=== PATIENT | female | born 1940 | race Caucasian/White ===

== ENCOUNTER 2020-05-05 11:24 | Inpatient (IN) | payer MEDICARE, SELFPAY ==
[2020-05-05] VITALS (54 sets, daily range): BP systolic 64–141; BP diastolic 36–102; PULSE 62–111; RESP 14–29; TEMP 35.9–36.6; O2SAT 87–100; BMI 25.4
--- NOTE | ~2020-05-05 | US_ITS ---
EXAMINATION:US venous doppler LE BI INDICATION:Pulmonary embolism TECHNIQUE: Multiple grayscale, color flow and Doppler images of the right and left lower extremity de ep venous systems were obtained and reviewed. COMPARISON:No prior studies for comparison. FINDINGS: The common femoral, superficial femoral and popliteal veins demonstrate normal respiratory variation, augmentation and compressibility. Color flow is also seen within the posterior tibial, pe roneal, greater saphenous and profunda veins. IMPRESSION: 1: No lower extremity deep venous thrombosis. Reviewed, dictated and finalized at location B. L CITY DRIVER
--- NOTE | ~2020-05-05 | CT_ITS ---
EXAMINATION: CTA chest PE protocol EXAM DATE: 05/05/2020 14:01 INDICATION: Shortness of breath, elevated d-dimer. TECHNIQUE: Spiral CTA of the chest (pulmonary arteries) was performed with 100 cc Omnipaque 350 intr avenous contrast injection. Images were acquired during the pulmonary arterial phase. Coronal maxi mum intensity projection 3D-reconstructions were created by the technologist on dedicated workstation . Axial, coronal and sagittal reformatted images were reviewed. The dose-length product (DLP) for t his examination was 208.31 mGy-cm. The exposure was tailored according to patient size (auto mA exp osure control), and iterative reconstruction (ASIR) was used as additional dose reduction technique. There is no prior study for comparison. FINDINGS: There is a subsegmental pulmonary embolism identified in the left lower lobe and another in the right middle lobe. Low clot burden. No thoracic aortic dissection. There is moderate centrilobu lar emphysema. Linear bibasilar and dependent atelectasis. No evidence of acute infectious process. Small pericardial effusion. Tracheobronchial tree is patent. There is no mediastinal, hilar or axillary lymphadenopathy. Ther e is no pneumothorax. Heart normal in size. There is mild coronary arterial calcification, arteri al sclerosis. 3 mm stone in the superior pole of the left kidney. Incompletely imaged fluid density lesion superior pole of right kidney. There is thoracic spondylosis without osteoblastic or osteolyt ic lesions identified. There is cervical fusion hardware. IMPRESSION: 1. Positive for bilateral subsegmental pulmonary emboli, low clot burden. 2. Scattered bilateral subsegmental atelectasis. 3. Moderate emphysema. 4. Left nephrolithiasis. Reviewed, dictated and finalized at location A. ONAL ECONOMIST
--- NOTE | ~2020-05-05 | US_ITS ---
US renal BI 05/06/2020 12:49 Procedure: Realtime transabdominal ultrasound of the kidneys and bladder. Indication: Elevated BUN/creatinine Comparison: No prior studies for comparison. Findings: Renal echotexture is normal bilaterally without hydronephrosis, contour deforming mass or r enal calculus. 2 cysts identified in the upper pole of the right kidney, largest measuring 3.6 cm max imum dimension. The right kidney measures 9 cm and left kidney measures 10.3 cm. Bladder within norm al limits. Impression: 1: Right renal cysts. Reviewed, dictated and finalized at location B. [employer] WORK[employer] MASTERS Impression: 1: Right renal cysts.
--- NOTE | ~2020-05-05 | XR_ITS ---
EXAMINATION: XR chest 1V portable EXAM DATE: 05/05/2020 12:59 INDICATION: Shortness of breath. TECHNIQUE: Portable AP frontal chest x-ray was obtained. Comparison is made to prior examination from 07/18. FINDINGS: The lungs are clear. There are no pleural effusions. The cardiomediastinal silhouette is within normal limits. There is no pneumothorax suspected. There are mild bony degenerative changes. There is cervical fusion hardware. IMPRESSION: No acute cardiopulmonary findings. Reviewed, dictated and finalized at location A. [employer]
--- NOTE | 2020-05-05 11:41 | ECG_ITS ---
Measurements Intervals [place] Rate: 102 P: 14 MN: 174 QRS: 68 QRSD: 94 T: 96 QT: 326 QTc: 425 Interpretive Statements SINUS TACHYCARDIA INCOMPLETE RIGHT BUNDLE BRANCH BLOCK BORDERLINE ST-T WAVE ABNORMALITY- ANTEROLAT/HIGH LAT LEADS BASELINE WANDER- I, II BORDERLINE ECG Electronically Signed On 05-05-2020 12:29:45 VERTICAL BORING MILL OPERATOR by Helder Dean D.O.
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
[2020-05-05 12:18] LABS: Basophils Absolute Auto 0.1 K/mm3 (0.0-0.1); Basophils Percent Auto 0.4 % (0.2-1.2); Eosinophils Absolute Auto 0.2 K/mm3 (0-0.3); Eosinophils Percent Auto 0.6 % (0-4.4); Hematocrit 29.1 % (37.0-47.0); Hemoglobin 9.4 g/dL (12.0-15.0); Immature Granulocyte Percent A 1.9 % (0-0.5); Lymphocytes Absolute Auto 1.07 K/mm3 (0.9-3.2); Mean Corpuscular HGB Conc 32.3 g/dl (32-36); Mean Corpuscular Volume 86.6 fl (80-100); Mean Platelet Volume 10.3 fl (7.4-10.4); Monocytes Absolute Auto 1.2 K/mm3 (0.1-0.6); Monocytes Percent Auto 4.6 % (2.6-8.5); Neutrophils Absolute Auto 23.7 K/mm3 (1.3-6.7); Neutrophils Percent Auto 88.5 % (45.5-73.1); Platelet Count Result 438 k/mm3 (150-375); Red Blood Count 3.36 M/mm3 (4.2-5.4); Red Cell Distribution Width 12.9 % (11.5-14.5); White Blood Count 26.8 K/mm3 (4.5-10.0)
[2020-05-05 12:27] LABS: Alanine Aminotransferase 13 U/L (4-35); Alkaline Phosphatase 154 U/L (38-126); Anion Gap 10 mmol/L (8-16); Aspartate Amino Transferase 32 U/L (14-36); Bilirubin,Total 0.7 mg/dL (0.2-1.3); Blood Urea Nitrogen 28 mg/dL (7-17); Calcium 8.7 mg/dL (8.4-10.2); Carbon Dioxide 23 mmol/L (22-30); Chloride 98 mmol/L (98-107); Estimated CRCL calculation 25 ml/min; Estimated Glomerular Filt Rate 31; Glucose 283 mg/dL (65-105); Potassium 4.3 mmol/L (3.4-5.0); Sodium 131 mmol/L (137-145)
[2020-05-05 12:40] LABS: NT Pro B Type Natriuretic Pept 821 PG/ML (5-100); Troponin I < 0.012 ng/mL (0.000-0.034)
[2020-05-05 12:43] LABS: D Dimer 9.06 ug/mL (<0.48)
[2020-05-05 14:53] LABS: Lactic Acid Reflex 1.7 mmol/L (0.7-2.1)
[2020-05-05] MEDS: DEXAMETHASONE SOD PHOS INJ 4 MG/ML VIAL 10 MG IV PUSH (14:54)
[2020-05-05] MEDS: LACTATED RINGERS 1,000 ML 999 ML IV CONT (14:55)
[2020-05-05 15:46] LABS: Basophils Absolute Auto 0.1 K/mm3 (0.0-0.1); Basophils Percent Auto 0.3 % (0.2-1.2); Eosinophils Absolute Auto 0.2 K/mm3 (0-0.3); Eosinophils Percent Auto 0.9 % (0-4.4); Hematocrit 27.6 % (37.0-47.0); Hemoglobin 8.9 g/dL (12.0-15.0); Immature Granulocyte Absolute 0.21 K/mm3 (0.00-0.031); Immature Granulocyte Percent A 0.8 % (0-0.5); Lymphocytes Absolute Auto 1.59 K/mm3 (0.9-3.2); Lymphocytes Percent Auto 6.2 % (18.3-44.2); Mean Corpuscular HGB Conc 32.2 g/dl (32-36); Mean Corpuscular Hemoglobin 27.8 pg (26-34); Mean Corpuscular Volume 86.3 fl (80-100); Monocytes Absolute Auto 1.1 K/mm3 (0.1-0.6); Monocytes Percent Auto 4.3 % (2.6-8.5); Neutrophils Absolute Auto 22.4 K/mm3 (1.3-6.7); Neutrophils Percent Auto 87.5 % (45.5-73.1); Platelet Count Result 431 k/mm3 (150-375); White Blood Count 25.6 K/mm3 (4.5-10.0)
[2020-05-05 15:55] LABS: INR 1.3
[2020-05-05 15:56] LABS: Partial Thromboplastin Time 31.1 SECONDS (22.3-36.8)
[2020-05-05] MEDS: HEPARIN SODIUM 5,000 UNITS/ML VIAL 4500 UNITS IV PUSH ×2 (16:03→23:22)
[2020-05-05] MEDS: HEPARIN SOD/D5W 100 UNITS/ML 25,000 UNITS/250 ML BAG 11 UNITS IV CONT (16:07)
--- NOTE | 2020-05-05 16:52 | PC.NURSE ---
will start o2 at 2 lpm nc for room air sat 90-93%. denies sob at this time
[2020-05-05 22:10] LABS: Glucose Point of Care 359 (65-105)
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
--- NOTE | 2020-05-05 22:45 | ADMGEN ---
This patient, Haven Tubbs, was admitted to IMU Room 214-01 at 2130. Patient/family oriented to hospital policies and general routines including ID bracelet, bed and alarms, visiting hours, pain management, procedures, bathroom and other care routines, personal items, smoking policy, room service/diet, and visiting hours. Information on how to activate the Rapid Response Team has been discussed. Patient/Family are encouraged to report perceived risks to care and to ask questions if they do not understand what they are told or what they should do.
[2020-05-05 22:56] LABS: Partial Thromboplastin Time 47.6 SECONDS (22.3-36.8)
[2020-05-05] MEDS: SODIUM CHLORIDE 0.9% IV 1,000 ML 100 ML IV CONT (23:22)
[2020-05-05 23:24] LABS: SARS-CoV-2 RNA PCR Negative
[2020-05-06] VITALS (8 sets, daily range): BP systolic 108–118; BP diastolic 45–94; PULSE 77–117; RESP 18–20; TEMP 35.6–36.6; O2SAT 95–100
--- NOTE | 2020-05-06 | ECHO_ITS ---
Patient Info Name: Haven Tubbs Age: 79 years : 1940 Gender: Female Ht: 64 in Wt: 149 lbs BSA: 1.76 m2 HR: 80 bpm BP: 117 / 48 mmHg Heart Rhythm: Sinus Rhythm Technical Quality: Good Exam Date: 05/06/2020 9:34 AM Exam Location: [facility] Pulmonary Patient Status: Inpatient Admit Date: 05/05/2020 Staff Ordering Physician: Inderjit Anders MD Physical Laboratory Assistant: Lucas Sexton RDCS Attending Provider: Lexus Colvin MD Referring Physician: Chago VILLANUEVA; Exam Type: CA echo doppler color flow Study Info Indications R06.02 - Shortness of breath Complete two-dimensional, color flow and Doppler transthoracic echocardiogram is performed. History/Risk Factors SOB w/ pulmonary embolism, CAD, HTN, anemia, DM2. Summary 1. Complete two-dimensional, color flow and Doppler transthoracic echocardiogram is performed. 2. Left ventricular chamber dimension is normal. 3. Left ventricular systolic function is normal, estimated at 60-65%. 4. There is moderately increased left ventricular wall thickness. 5. The left ventricular diastolic function is grade I diastolic dysfunction. 6. E/e' 9 is minimally elevated. 7. There is mild aortic valve stenosis based on a peak velocity of 184 cm/s, mean gradient of 6 mmHg, and aortic valve area of 1.8 cm2. 8. No pulmonary hypertension, estimated pulmonary arterial systolic pressure is 25 mmHg. Left Ventricle E/e' 9 is minimally elevated. Left ventricular chamber dimension is normal. Left ventricular systolic function is normal, estimated at 60-65%. There is moderately increased left ventricular wall thickness. The left ventricular diastolic function is grade I diastolic dysfunction. Right Ventricle Right ventricular chamber dimension is normal. Right ventricular systolic function is normal. Left Atria Left atrial chamber dimension is normal. Right Atria Right atrial chamber dimension is normal. Aortic Valve The aortic valve is not well visualized. There is mild aortic valve stenosis based on a peak velocity of 184 cm/s, mean gradient of 6 mmHg, and aortic valve area of 1.8 cm2. There is no aortic valve regurgitation. Cannot determine number of aortic valve leaflets. Pulmonic Valve There is no pulmonic regurgitation. Mitral Valve There is no mitral valve stenosis. There is no mitral valve regurgitation. Tricuspid Valve There is no tricuspid valve regurgitation. No pulmonary hypertension, estimated pulmonary arterial systolic pressure is 25 mmHg. Pericardium/Pleural There is no pericardial effusion. Inferior Vena Cava Normal inferior vena cava with >50% collapse upon inspiration consistent with normal right atrial pressure, 5 mmHg. Aorta The aortic root size at the sinus of Valsalva is normal. Left Ventricular Outflow Tract Name Value Normal LVOT 2D LVOT Diameter 1.8 cm LVOT Doppler LVOT Peak Gradient 6 mmHg LVOT Mean Gradient 3 mmHg LVOT VTI 25 cm LVOT VTI/AV VTI Ratio 0.7 LVOT Stroke Volume
[2020-05-06 05:40] LABS: Basophils Absolute Auto 0.1 K/mm3 (0.0-0.1); Basophils Percent Auto 0.2 % (0.2-1.2); Eosinophils Absolute Auto 1.2 K/mm3 (0-0.3); Eosinophils Percent Auto 4.4 % (0-4.4); Hematocrit 26.8 % (37.0-47.0); Hemoglobin 8.7 g/dL (12.0-15.0); Immature Granulocyte Absolute 0.59 K/mm3 (0.00-0.031); Immature Granulocyte Percent A 2.2 % (0-0.5); Lymphocytes Absolute Auto 0.76 K/mm3 (0.9-3.2); Lymphocytes Percent Auto 2.9 % (18.3-44.2); Mean Corpuscular HGB Conc 32.5 g/dl (32-36); Mean Corpuscular Volume 86.2 fl (80-100); Mean Platelet Volume 10.6 fl (7.4-10.4); Monocytes Absolute Auto 0.3 K/mm3 (0.1-0.6); Monocytes Percent Auto 1.2 % (2.6-8.5); Neutrophils Absolute Auto 23.6 K/mm3 (1.3-6.7); Neutrophils Percent Auto 89.1 % (45.5-73.1); Platelet Count Result 384 k/mm3 (150-375); Red Blood Count 3.11 M/mm3 (4.2-5.4); Red Cell Distribution Width 12.9 % (11.5-14.5); White Blood Count 26.5 K/mm3 (4.5-10.0)
[2020-05-06 06:11] LABS: Partial Thromboplastin Time 197.8 SECONDS (22.3-36.8)
[2020-05-06 08:06] LABS: Basophils Percent Auto 0.1 % (0.2-1.2); Eosinophils Absolute Auto 0.8 K/mm3 (0-0.3); Eosinophils Percent Auto 2.7 % (0-4.4); Hematocrit 27.6 % (37.0-47.0); Immature Granulocyte Absolute 0.48 K/mm3 (0.00-0.031); Immature Granulocyte Percent A 1.7 % (0-0.5); Lymphocytes Percent Auto 3.5 % (18.3-44.2); Mean Corpuscular HGB Conc 32.6 g/dl (32-36); Mean Corpuscular Hemoglobin 27.9 pg (26-34); Mean Corpuscular Volume 85.4 fl (80-100); Mean Platelet Volume 10.4 fl (7.4-10.4); Monocytes Absolute Auto 0.5 K/mm3 (0.1-0.6); Monocytes Percent Auto 1.8 % (2.6-8.5); Neutrophils Percent Auto 90.2 % (45.5-73.1); Platelet Count Result 422 k/mm3 (150-375); Red Blood Count 3.23 M/mm3 (4.2-5.4); Red Cell Distribution Width 12.9 % (11.5-14.5); White Blood Count 28.8 K/mm3 (4.5-10.0)
[2020-05-06 08:17] LABS: Anion Gap 7 mmol/L (8-16); Blood Urea Nitrogen 23 mg/dL (7-17); Calcium 8.7 mg/dL (8.4-10.2); Carbon Dioxide 24 mmol/L (22-30); Chloride 103 mmol/L (98-107); Estimated CRCL calculation 30 ml/min; Estimated Glomerular Filt Rate 44; Glucose 295 mg/dL (65-105); Potassium 4.3 mmol/L (3.4-5.0); Sodium 134 mmol/L (137-145)
[2020-05-06 08:20] LABS: Glucose Point of Care 312 (65-105)
[2020-05-06 08:20] LABS: Anisocytosis 1+ (NORMAL); Burr Cells 1+ (NORMAL); Hypochromasia 1+ (NORMAL); Microcytosis 1+ (NORMAL)
[2020-05-06 08:21] LABS: Platelet Estimate Adequate (Adequate)
[2020-05-06] MEDS: INSULIN ASPART (*BKC) 100 UNITS/ML SUB-Q ×2 (08:39→17:41)
[2020-05-06 13:03] LABS: Glucose Point of Care 182 (65-105)
[2020-05-06 13:18] LABS: Partial Thromboplastin Time 67.1 SECONDS (22.3-36.8)
[2020-05-06] MEDS: HEPARIN SODIUM 5,000 UNITS/ML VIAL 2500 UNITS IV PUSH (13:29)
[2020-05-06] MEDS: HEPARIN SOD/D5W 100 UNITS/ML 25,000 UNITS/250 ML BAG 11 UNITS IV CONT (13:30)
[2020-05-06 13:52] LABS: Add Urine Microscopic? YES; Appearance Urine Clear (Clear); Bilirubin Urine Negative (Negative); Blood Urine Negative (Negative); Color Urine Yellow (Yellow); Glucose Urine UA 3+ mg/dL (Negative); Ketones Urine Negative (Negative); Leukocyte Esterase Ur Negative LEU/UL (NEGATIVE); Mucus Urine Rare /lpf; Nitrate Urine Negative (Negative); Protein Urine Negative (Negative); RBC Urine 0-2 /hpf (0-2); Specific Grav Ur 1.026 (1.001-1.035); Squamous Epithelial Cell Urine Occasional /hpf (Few); Transitional Epi Cells Urine Rare /hpf (None Seen); Urobilinogen Urine Negative mg/dL (<2.0)
--- NOTE | 2020-05-06 14:55 | PM.IMPN ---
Progress Note: A&P Assessment and Plan (1) Pulmonary emboli: Qualifiers: Pulmonary embolism type: multiple subsegmental (without acute cor pulmonale) Qualified Code(s): I26.94 - Multiple subsegmental pulmonary emboli without acute cor pulmonale Code(s): I26.99 - Other pulmonary embolism without acute cor pulmonale Status: Acute Assessment and Plan: She has been anticoagulated on IV heparin by ER provider. She will need to be transitioned to oral anticoagulants am 12 venous doppler neg and no pul htn on echo (2) Leukocytosis: Qualifiers: Leukocytosis type: unspecified Qualified Code(s): D72.829 - Elevated white blood cell count, unspecified Code(s): D72.829 - Elevated white blood cell count, unspecified Status: Acute Assessment and Plan: May be secondary to acute pulmonary emboli, viral infection, or other undiagnosed infection(did receive dexamethasone in ER too). urinalysis looks benign. Blood cultures pending. Monitor for any signs or symptoms of acute bacterial infection. She was empirically treated with IV antibiotics in the ER . (3) Normocytic anemia: Code(s): D64.9 - Anemia, unspecified Status: Acute Assessment and Plan: acute vs. chronic anemia? She denies any acute blood loss. We will monitor blood counts. Check FOBT. Fe studies and b12 ordered (4) Acute renal failure: Qualifiers: Acute renal failure type: unspecified Qualified Code(s): N17.9 - Acute kidney failure, unspecified Code(s): N17.9 - Acute kidney failure, unspecified Status: Acute Assessment and Plan: withLight IV hydration overnight creatinine fell to 1.2. Renal US no obstruction (5) Suspected 2019 novel coronavirus infection: Code(s): Z20.828 - Contact with and (suspected) exposure to other viral communicable diseases Status: Acute Assessment and Plan: COVID-19 results negative (6) Nephrolithiasis: Code(s): N20.0 - Calculus of kidney Status: Chronic Assessment and Plan: She may need Urology referral for an outpatient appointment for her asymptomatic nephrolithiasis. (7) Type 2 diabetes mellitus without complications: Qualifiers: Diabetes mellitus detention insulin use: without detention use Qualified Code(s): E11.9 - Type 2 diabetes mellitus without complications Code(s): E11.9 - Type 2 diabetes mellitus without complications Status: Chronic Assessment and Plan: Accuchecks, SSI Coverage, hypoglycemic coverage, hold glimperide, check A1c. (8) Pure hypercholesterolemia: Code(s): E78.00 - Pure hypercholesterolemia, unspecified Status: Chronic Assessment and Plan: Continue statin thearpy. (9) Back pain, chronic: Qualifiers: Back pain location: back pain in unspecified location Back pain laterality: unspecified Qualified Code(s): M54.9 - Dorsalgia, unspecified; G89.29 - Other chronic pain Code(s): M54.9 - Dorsalgia, unspecified; G89.29 - Other chronic pain Status: Chronic Assessment and Plan: Continue pain control as needed. Subjective Date/time seen: 05/06/20 14:55 Interval history: Date of visit 05/06, 79-year-old type 2 diabetic chronic back pain admitted with shortness breath and found to pulmonary emboli on CT scan. COVID swab was negative and feels better this a.m. after IV heparin treatment Denies any chest pain or shortness of breath at rest with 2 L nasal cannula. Exam Narrative: Exam Narrative: Blood pressure 114/52 pulse is 76 respirations 16 per minute saturating 98% on 2 L nasal cannula afebrile Pupils equal reactive light sclera anicteric Lungs faint bibasilar posterior crackles CV regular rate rhythm no murmurs Abdomen is soft nontender no masses Extremities without edema good distal pulses 2+ symmetrical dorsalis pedis posterior tibial and no calf tenderness Neuro alert cooperative n
[2020-05-06 16:33] LABS: Glucose Point of Care 291 (65-105)
--- NOTE | 2020-05-06 16:55 | PC.NURSE ---
pt transferred in to room 242 via bed, oriented to new room and environment, reviewed plan of care
--- NOTE | 2020-05-06 17:01 | PC.NURSE ---
This patient, Haven Tubbs, was transferred to [facility] on 05/06/20 at 1645. Personal belongings sent with patient. Report given to Angelica LANDERS. Appropriate documentation sent with patient.
[2020-05-06] MEDS: FAMOTIDINE 20 MG TABLET PO (21:05)
[2020-05-06] MEDS: traMADol HCL (*CRX) 50 MG TABLET PO (21:09)
[2020-05-06] MEDS: ALPRAZolam (*CRX) 0.25 MG TABLET PO (21:09)
[2020-05-06 21:53] LABS: Glucose Point of Care 230 (65-105)
[2020-05-07] VITALS: BP 121/49; PULSE 78; RESP 20; TEMP 36.4; O2SAT 96
[2020-05-07 01:43] LABS: Partial Thromboplastin Time 79.7 SECONDS (22.3-36.8)
[2020-05-07 04:00] VITALS: BP 136/53; PULSE 84; RESP 20; TEMP 36.2; O2SAT 96
[2020-05-07 07:43] LABS: Basophils Absolute Auto 0.1 K/mm3 (0.0-0.1); Basophils Percent Auto 0.2 % (0.2-1.2); Eosinophils Absolute Auto 0.2 K/mm3 (0-0.3); Hematocrit 26.4 % (37.0-47.0); Hemoglobin 8.5 g/dL (12.0-15.0); Immature Granulocyte Percent A 0.9 % (0-0.5); Lymphocytes Absolute Auto 3.05 K/mm3 (0.9-3.2); Lymphocytes Percent Auto 14.4 % (18.3-44.2); Mean Corpuscular HGB Conc 32.2 g/dl (32-36); Mean Corpuscular Hemoglobin 27.4 pg (26-34); Mean Corpuscular Volume 85.2 fl (80-100); Mean Platelet Volume 10.6 fl (7.4-10.4); Monocytes Absolute Auto 0.7 K/mm3 (0.1-0.6); Monocytes Percent Auto 3.3 % (2.6-8.5); Neutrophils Absolute Auto 16.9 K/mm3 (1.3-6.7); Neutrophils Percent Auto 80.2 % (45.5-73.1); Platelet Count Result 438 k/mm3 (150-375); White Blood Count 21.1 K/mm3 (4.5-10.0)
[2020-05-07 07:57] LABS: Iron 83 ug/dL (37-170)
[2020-05-07 08:07] LABS: Percent Iron Saturation 37 % (20-50)
[2020-05-07 08:37] LABS: Glucose Point of Care 155 (65-105)
[2020-05-07 09:25] VITALS: O2SAT 96
[2020-05-07] MEDS: ATORVASTATIN 10 MG TABLET PO (09:31)
[2020-05-07] MEDS: VITAMIN B COMPLEX/VIT C CAPSULE 1 EACH PO (09:31)
[2020-05-07] MEDS: MULTIVITAMINS THERAPEUTIC TAB (*BKC) 1 TABLET PO (09:31)
[2020-05-07] MEDS: FAMOTIDINE 20 MG TABLET PO (09:31)
[2020-05-07] MEDS: lisinopriL 2.5 MG TABLET PO (09:31)
[2020-05-07 10:00] VITALS: BP 125/55; PULSE 79; RESP 16; TEMP 36.6; O2SAT 95
[2020-05-07 10:42] LABS: Anion Gap 5 mmol/L (8-16); Blood Urea Nitrogen 26 mg/dL (7-17); Calcium 8.6 mg/dL (8.4-10.2); Carbon Dioxide 28 mmol/L (22-30); Chloride 104 mmol/L (98-107); Estimated CRCL calculation 32 ml/min; Estimated Glomerular Filt Rate 48; Glucose 173 mg/dL (65-105); Potassium 4.2 mmol/L (3.4-5.0); Sodium 137 mmol/L (137-145)
[2020-05-07 10:45] VITALS: O2SAT 94
[2020-05-07] MEDS: RIVAROXABAN 15 MG TABLET PO (11:00)
[2020-05-07 13:09] LABS: Vitamin B12 > 1000.0 pg/mL (239-931)
--- NOTE | 2020-05-07 16:58 | PM.DS ---
DS: Admitting Diagnosis Admitting Diagnosis Admitting Diagnosis: Acute Bilateral PE DS: Discharge Diagnosis Discharge Diagnosis (1) Pulmonary emboli: Qualifiers: Pulmonary embolism type: multiple subsegmental (without acute cor pulmonale) Qualified Code(s): I26.94 - Multiple subsegmental pulmonary emboli without acute cor pulmonale Code(s): I26.99 - Other pulmonary embolism without acute cor pulmonale Status: Acute Assessment and Plan: She has been anticoagulated on IV heparin by ER provider. She was transitioned to oral anticoagulants , Xarelto 15 mg b.i.d. at time of discharge venous doppler neg and no pul htn on echo with normal ejection fraction Unprovoked PE though she has been sedentary with recent back pain. No significant weight loss or other suggestions of underlying malignancy and COVID swab was negative. (2) Leukocytosis: Qualifiers: Leukocytosis type: unspecified Qualified Code(s): D72.829 - Elevated white blood cell count, unspecified Code(s): D72.829 - Elevated white blood cell count, unspecified Status: Acute Assessment and Plan: May be secondary to acute pulmonary emboli, (did receive dexamethasone in ER too). urinalysis looks benign. Blood cultures no growth. No signs or symptoms of acute bacterial infection. WBC had fallen to 21 K and will have repeated again within 10 days as an outpatient. (3) Normocytic anemia: Code(s): D64.9 - Anemia, unspecified Status: Acute Assessment and Plan: acute vs. chronic anemia? She denies any acute blood loss. . Fe studies compatible with anemia chronic disease and increase ferritin. B12 level was high. CBC in 2015 with hemoglobin 9. Colonoscope approximately 1 year ago revealed only hemorrhoids and small polyps. She will follow-up with primary care for repeat CBC within 10 days (4) Acute renal failure: Qualifiers: Acute renal failure type: unspecified Qualified Code(s): N17.9 - Acute kidney failure, unspecified Code(s): N17.9 - Acute kidney failure, unspecified Status: Acute Assessment and Plan: withLight IV hydration creatinine fell to 1.1 at discharge. Renal US no obstruction (5) Suspected 2019 novel coronavirus infection: Code(s): Z20.828 - Contact with and (suspected) exposure to other viral communicable diseases Status: Acute Assessment and Plan: COVID-19 results negative (6) Nephrolithiasis: Code(s): N20.0 - Calculus of kidney Status: Chronic Assessment and Plan: She may need Urology referral for an outpatient appointment for her asymptomatic nephrolithiasis. (7) Type 2 diabetes mellitus without complications: Qualifiers: Diabetes mellitus usp insulin use: without moth exterminator use Qualified Code(s): E11.9 - Type 2 diabetes mellitus without complications Code(s): E11.9 - Type 2 diabetes mellitus without complications Status: Chronic Assessment and Plan: Accuchecks, SSI Coverage, hypoglycemic coverage, hold glimperide, A1c. 7.0 (8) Pure hypercholesterolemia: Code(s): E78.00 - Pure hypercholesterolemia, unspecified Status: Chronic Assessment and Plan: Continue statin thearpy. (9) Back pain, chronic: Qualifiers: Back pain laterality: unspecified Back pain location: back pain in unspecified location Qualified Code(s): M54.9 - Dorsalgia, unspecified; G89.29 - Other chronic pain Code(s): M54.9 - Dorsalgia, unspecified; G89.29 - Other chronic pain Status: Chronic Assessment and Plan: Continue pain control as needed. DS: Summary Hospital Course Hospital Course: 79-year-old hypertensive type 2 diabetic presented to the emergency room with increasing shortness of breath for fluid COVID. Found to have pulmonary emboli and COVID swab was negative. Treated with IV heparin transition to Xarelto before discharge and sh
== END 2020-05-07 13:15 | disposition home or self-care (01) | DRG 176 ==
LOC: ANHED 15:46 → ANHIMU 20:52 → ANH2MED 05-07 11:15 → ANHIMU 05-11 13:35
PROVIDERS: Family Medicine; Admitting Provider Family Medicine; Emergency Provider Emergency Medicine; PCP Internal Medicine; Visit Provider Internal Medicine
DX: I26.94 Multiple subsegmental thrombotic pulmonary emboli without acute cor pulmonale (principal); N17.9 Acute kidney failure, unspecified; Z20.828 Contact with and (suspected) exposure to other viral communicable diseases; D72.829 Elevated white blood cell count, unspecified; D63.8 Anemia in other chronic diseases classified elsewhere; N20.0 Calculus of kidney; E11.9 Type 2 diabetes mellitus without complications; E78.00 Pure hypercholesterolemia, unspecified; M54.9 Dorsalgia, unspecified; G89.29 Other chronic pain; D47.3 Essential (hemorrhagic) thrombocythemia; I25.10 Atherosclerotic heart disease of native coronary artery without angina pectoris; Z87.891 Personal history of nicotine dependence; Z95.5 Presence of coronary angioplasty implant and graft
CPT/HCPCS: 36415; 71045; 71275; 76775; 80048; 80053; 81001; 82607; 82728; 83036; 83540; 83550; 83605; 83880; 84484; 85025; 85380; 85610; 85730; 87040; 87086; 87635; 93005; 93306; 93970; 96361; 96365; 96366; 96367; 96368; 96375; 99291; A9270; C9803; G0378; J0456; J0696; J1100; J1644; J1815; J7030; J7120; Q9967; U0003

== ENCOUNTER 2020-05-08 08:33 | Observation (INO) | payer MEDICARE, SELFPAY ==
[2020-05-08] VITALS (11 sets, daily range): BP systolic 126–151; BP diastolic 53–68; PULSE 76–98; RESP 18–20; TEMP 36.2–36.8; O2SAT 96–100; BMI 26.0
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
[2020-05-08 09:00] LABS: Basophils Absolute Auto 0.1 K/mm3 (0.0-0.1); Basophils Percent Auto 0.5 % (0.2-1.2); Eosinophils Absolute Auto 0.6 K/mm3 (0-0.3); Eosinophils Percent Auto 3.6 % (0-4.4); Hematocrit 30.6 % (37.0-47.0); Immature Granulocyte Percent A 1.2 % (0-0.5); Lymphocytes Absolute Auto 2.69 K/mm3 (0.9-3.2); Lymphocytes Percent Auto 16.1 % (18.3-44.2); Mean Corpuscular HGB Conc 32.7 g/dl (32-36); Mean Corpuscular Hemoglobin 27.5 pg (26-34); Mean Corpuscular Volume 84.3 fl (80-100); Mean Platelet Volume 10.2 fl (7.4-10.4); Monocytes Percent Auto 5.7 % (2.6-8.5); Neutrophils Absolute Auto 12.2 K/mm3 (1.3-6.7); Neutrophils Percent Auto 72.9 % (45.5-73.1); Platelet Count Result 519 k/mm3 (150-375); Red Blood Count 3.63 M/mm3 (4.2-5.4); Red Cell Distribution Width 12.8 % (11.5-14.5); White Blood Count 16.8 K/mm3 (4.5-10.0)
[2020-05-08 09:10] LABS: INR 4.4; Prothrombin Time 42.2 Seconds (11.1-14.7)
[2020-05-08 09:11] LABS: Partial Thromboplastin Time 57.4 SECONDS (22.3-36.8)
[2020-05-08 09:13] LABS: Alanine Aminotransferase 22 U/L (4-35); Albumin Level 3.2 g/dL (3.5-5.1); Alkaline Phosphatase 181 U/L (38-126); Anion Gap 8 mmol/L (8-16); Aspartate Amino Transferase 31 U/L (14-36); Bilirubin,Total 0.5 mg/dL (0.2-1.3); Blood Urea Nitrogen 23 mg/dL (7-17); Carbon Dioxide 28 mmol/L (22-30); Chloride 101 mmol/L (98-107); Estimated CRCL calculation 27 ml/min; Estimated Glomerular Filt Rate 40; Glucose 192 mg/dL (65-105); Potassium 4.2 mmol/L (3.4-5.0); Sodium 137 mmol/L (137-145)
[2020-05-08] MEDS: SODIUM CHLORIDE 0.9% IV 1,000 ML 999 ML IV CONT (09:16)
[2020-05-08 11:45] LABS: Hematocrit 32.8 % (37.0-47.0); Hemoglobin 10.5 g/dL (12.0-15.0)
--- NOTE | 2020-05-08 14:58 | ADMGEN ---
This patient, Haven Tubbs, was admitted to 2 Medical Room 260-01. Patient/family oriented to hospital policies and general routines including ID bracelet, bed and alarms, visiting hours, pain management, procedures, bathroom and other care routines, personal items, smoking policy, room service/diet, and visiting hours. Information on how to activate the Rapid Response Team has been discussed. Patient/Family are encouraged to report perceived risks to care and to ask questions if they do not understand what they are told or what they should do. Report received from LEESA Mercado.
[2020-05-08 16:59] LABS: Glucose Point of Care 139 (65-105)
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
[2020-05-08] MEDS: ACETAMINOPHEN 325 MG TABLET 650 MG PO (23:19)
[2020-05-08] MEDS: ALPRAZolam (*CRX) 0.25 MG TABLET PO (23:19)
[2020-05-08 23:21] LABS: Hematocrit 28.1 % (37.0-47.0); Hemoglobin 9.2 g/dL (12.0-15.0)
[2020-05-09 01:39] LABS: Glucose Point of Care 202 (65-105)
[2020-05-09 02:00] VITALS: BP 137/52; PULSE 79; RESP 21; TEMP 36.4; O2SAT 100
[2020-05-09 05:43] LABS: Basophils Absolute Auto 0.1 K/mm3 (0.0-0.1); Basophils Percent Auto 0.5 % (0.2-1.2); Eosinophils Absolute Auto 0.5 K/mm3 (0-0.3); Eosinophils Percent Auto 4.1 % (0-4.4); Hemoglobin 9.4 g/dL (12.0-15.0); Immature Granulocyte Absolute 0.22 K/mm3 (0.00-0.031); Immature Granulocyte Percent A 1.7 % (0-0.5); Lymphocytes Absolute Auto 2.43 K/mm3 (0.9-3.2); Lymphocytes Percent Auto 18.8 % (18.3-44.2); Mean Corpuscular HGB Conc 32.4 g/dl (32-36); Mean Corpuscular Hemoglobin 27.3 pg (26-34); Mean Corpuscular Volume 84.3 fl (80-100); Mean Platelet Volume 10.1 fl (7.4-10.4); Monocytes Absolute Auto 0.8 K/mm3 (0.1-0.6); Monocytes Percent Auto 6.5 % (2.6-8.5); Neutrophils Absolute Auto 8.9 K/mm3 (1.3-6.7); Neutrophils Percent Auto 68.4 % (45.5-73.1); Platelet Count Result 429 k/mm3 (150-375); Red Blood Count 3.44 M/mm3 (4.2-5.4); Red Cell Distribution Width 12.7 % (11.5-14.5); White Blood Count 12.9 K/mm3 (4.5-10.0)
[2020-05-09 05:53] LABS: Potassium 3.8 mmol/L (3.4-5.0)
[2020-05-09 06:00] VITALS: BP 130/58; PULSE 88; RESP 18; TEMP 36.1; O2SAT 97
[2020-05-09 06:15] LABS: Anion Gap 9 mmol/L (8-16); Blood Urea Nitrogen 17 mg/dL (7-17); Calcium 8.7 mg/dL (8.4-10.2); Carbon Dioxide 25 mmol/L (22-30); Chloride 103 mmol/L (98-107); Estimated CRCL calculation 34 ml/min; Estimated Glomerular Filt Rate 54; Glucose 150 mg/dL (65-105); Magnesium 1.8 mg/dL (1.6-2.3); Sodium 137 mmol/L (137-145)
[2020-05-09] MEDS: ACETAMINOPHEN 325 MG TABLET 650 MG PO ×2 (06:56→13:37)
[2020-05-09 08:00] VITALS: BP 109/57; PULSE 93; RESP 18; TEMP 36.3; O2SAT 97
[2020-05-09 08:23] LABS: Glucose Point of Care 185 (65-105)
[2020-05-09] MEDS: VITAMIN B COMPLEX/VIT C CAPSULE 1 EACH PO (10:14)
[2020-05-09] MEDS: ATORVASTATIN 10 MG TABLET PO (10:14)
[2020-05-09] MEDS: MULTIVITAMINS THERAPEUTIC TAB (*BKC) 1 TABLET PO (10:14)
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
[2020-05-09 10:45] LABS: Hematocrit 32.3 % (37.0-47.0); Hemoglobin 10.5 g/dL (12.0-15.0)
--- NOTE | 2020-05-09 10:54 | PM.IMPN ---
Progress Note: A&P Assessment and Plan (1) GI bleed: Qualifiers: GI bleed type/associated pathology: unspecified gastrointestinal hemorrhage type Qualified Code(s): K92.2 - Gastrointestinal hemorrhage, unspecified Code(s): K92.2 - Gastrointestinal hemorrhage, unspecified Status: Acute Assessment and Plan: Colonoscopy performed 02/[address] De Oliveira which noted 2 polyps removed and evidence of internal hemorrhoids. She is on anticoagulation for recent diagnosis of PE; this has been resumed given minimal GI blood loss and stable H&H. Patient denying any bleeding since yesterday. GI has been consulted and appreciate input. Patient is eager to be discharged. H&H stable since admission. Will monitor for now GI following (2) Anxiety: Code(s): F41.9 - Anxiety disorder, unspecified Status: Chronic Assessment and Plan: Continue Xanax. (3) Hypertension: Code(s): I10 - Essential (primary) hypertension Status: Chronic Assessment and Plan: BP 100 sys this morning Holding lisinopril due to acute on chronic kidney disease Monitor (4) Chronic renal failure, stage 3 (moderate): Code(s): N18.30 - Chronic kidney disease, stage 3 unspecified Status: Chronic Assessment and Plan: Patient's creatinine is 1.00 today. Appears to be baseline Lisinopril held Monitor renal function (5) Chronic anemia: Code(s): D64.9 - Anemia, unspecified Status: Chronic Assessment and Plan: Patient's hemoglobin is typically between 8 and 10 and she is at her baseline currently Monitor H&H as above (6) Back pain, chronic: Qualifiers: Back pain location: back pain in unspecified location Back pain laterality: unspecified Qualified Code(s): M54.9 - Dorsalgia, unspecified; G89.29 - Other chronic pain Code(s): M54.9 - Dorsalgia, unspecified; G89.29 - Other chronic pain Status: Chronic Assessment and Plan: Continue home meds for now (7) Pulmonary emboli: Qualifiers: Pulmonary embolism type: multiple subsegmental (without acute cor pulmonale) Qualified Code(s): I26.94 - Multiple subsegmental pulmonary emboli without acute cor pulmonale Code(s): I26.99 - Other pulmonary embolism without acute cor pulmonale Status: Chronic Assessment and Plan: Recently admitted/diagnosed earlier this week. Given that she has not had any bloody stools since and H&H stable, will continue treatment with Xarelto Monitor for signs of blood loss (8) Type 2 diabetes mellitus without complications: Qualifiers: Diabetes mellitus superintendent terminal insulin use: without [facility] use Qualified Code(s): E11.9 - Type 2 diabetes mellitus without complications Code(s): E11.9 - Type 2 diabetes mellitus without complications Status: Chronic Assessment and Plan: BGL 100s today. A1c 7.0 Accuchecks ACHS, hypoglycemia protocol, correctional insulin, diabetic diet Will hold home medications for now Subjective Date/time seen: 05/09/20 10:54 Interval history: Patient is a 79 yo F with history of CKDIII, DMII, chronic anemia, history of internal hemorrhoids and recent diagnosis of PE (on a/c) who is seen in follow up for GI blood loss. Patient states she feels fine today and is eager to return home. She denies any further rectal bleeding. She is adamant it was only a small amount of blood that dripped into the toilet yesterday and has not noticed any bleeding since then. No other complaints. Denies f/c/s, headaches, dizziness, lightheadedness, changes in v/h, cp/palpitations, current sob/cough, n/v/d/c, abd p
--- NOTE | 2020-05-09 13:08 | PM.DS ---
DS: Admitting Diagnosis Admitting Diagnosis Admitting Diagnosis: GI bleed DS: Discharge Diagnosis Discharge Diagnosis (1) GI bleed: Qualifiers: GI bleed type/associated pathology: unspecified gastrointestinal hemorrhage type Qualified Code(s): K92.2 - Gastrointestinal hemorrhage, unspecified Code(s): K92.2 - Gastrointestinal hemorrhage, unspecified Status: Acute Assessment and Plan: Colonoscopy performed 02/[address] De Oliveira which noted 2 polyps removed and evidence of internal hemorrhoids. She is on anticoagulation for recent diagnosis of PE; this has been resumed given minimal GI blood loss and stable H&H. Patient denying any bleeding since yesterday. GI has been consulted and appreciate input. Patient is eager to be discharged. H&H stable since admission. Discussed with Dr. Ellington who was okay with discharge with prompt follow up with outpatient labs and with PCP Will do H&H on 05/11 F/u with with PCP (2) Anxiety: Code(s): F41.9 - Anxiety disorder, unspecified Status: Chronic Assessment and Plan: Continue Xanax. (3) Hypertension: Code(s): I10 - Essential (primary) hypertension Status: Chronic Assessment and Plan: BP 100 sys this morning Holding lisinopril due to acute on chronic kidney disease (4) Chronic renal failure, stage 3 (moderate): Code(s): N18.30 - Chronic kidney disease, stage 3 unspecified Status: Chronic Assessment and Plan: Patient's creatinine is 1.00 today. Appears to be baseline Lisinopril held but will resume med after discharge f/u with PCP (5) Chronic anemia: Code(s): D64.9 - Anemia, unspecified Status: Chronic Assessment and Plan: Patient's hemoglobin is typically between 8 and 10 and she is at her baseline currently Monitor H&H as outpatient as stated above (6) Back pain, chronic: Qualifiers: Back pain laterality: unspecified Back pain location: back pain in unspecified location Qualified Code(s): M54.9 - Dorsalgia, unspecified; G89.29 - Other chronic pain Code(s): M54.9 - Dorsalgia, unspecified; G89.29 - Other chronic pain Status: Chronic Assessment and Plan: Continue home meds for now (7) Pulmonary emboli: Qualifiers: Pulmonary embolism type: multiple subsegmental (without acute cor pulmonale) Qualified Code(s): I26.94 - Multiple subsegmental pulmonary emboli without acute cor pulmonale Code(s): I26.99 - Other pulmonary embolism without acute cor pulmonale Status: Chronic Assessment and Plan: Recently admitted/diagnosed earlier this week. Given that she has not had any bloody stools since and H&H stable, will continue treatment with Xarelto Monitor for signs of blood loss after discharge F/u with PCP H&H 05/11 (8) Type 2 diabetes mellitus without complications: Qualifiers: Diabetes mellitus usp insulin use: without usp use Qualified Code(s): E11.9 - Type 2 diabetes mellitus without complications Code(s): E11.9 - Type 2 diabetes mellitus without complications Status: Chronic Assessment and Plan: BGL 100s today. A1c 7.0 Accuchecks ACHS, hypoglycemia protocol, correctional insulin, diabetic diet Will resume home meds after discharge DS: Summary Hospital Course Reason for hospitalization: Rectal bleeding Hospital Course: Date of arrival: 05/08/20 Date of discharge: 05/09/20 Patient is a 79 yo F with history of CKDIII, DMII, chronic anemia, history of internal hemorrhoids and recent diagnosis of PE (on a/c) who presented to the ED on 05/08 with complaints of bloody stool ear
[2020-05-09] MEDS: RIVAROXABAN 15 MG TABLET PO (15:10)
== END 2020-05-09 15:45 | disposition home or self-care (01) ==
LOC: ANHED 14:10 → ANH2MED 14:46
PROVIDERS: Nurse Practitioner; Physician Assistant; Admitting Provider Internal Medicine; Emergency Provider Emergency Medicine; PCP Internal Medicine; Visit Provider Family Medicine
DX: K92.2 Gastrointestinal hemorrhage, unspecified (principal); K64.8 Other hemorrhoids; I26.94 Multiple subsegmental thrombotic pulmonary emboli without acute cor pulmonale; I12.9 Hypertensive chronic kidney disease with stage 1 through stage 4 chronic kidney disease, or unspecified chronic kidney disease; N18.30 Chronic kidney disease, stage 3 unspecified; D63.1 Anemia in chronic kidney disease; E11.22 Type 2 diabetes mellitus with diabetic chronic kidney disease; E78.5 Hyperlipidemia, unspecified; F41.9 Anxiety disorder, unspecified; G89.29 Other chronic pain; I25.10 Atherosclerotic heart disease of native coronary artery without angina pectoris; M54.9 Dorsalgia, unspecified; R06.02 Shortness of breath; Z79.899 Other long term (current) drug therapy; Z79.01 Long term (current) use of anticoagulants; Z87.891 Personal history of nicotine dependence
CPT/HCPCS: 36415; 80048; 80053; 83735; 84443; 85014; 85018; 85025; 85610; 85730; 96360; 99285; A9270; G0378; J7030

== ENCOUNTER 2020-06-24 11:08 | Observation (INO) | payer MEDICARE, SELFPAY ==
[2020-06-24] VITALS (12 sets, daily range): BP systolic 74–137; BP diastolic 48–93; PULSE 74–91; RESP 17–24; TEMP 36.2–37.3; O2SAT 95–100; BMI 24.7
--- NOTE | ~2020-06-24 | MR_ITS ---
EXAMINATION: MR cervical spine wo con EXAM DATE: 06/25/2020 11:52 INDICATION: Neck pain. Leukocytosis. TECHNIQUE: Multi-sequential, multiplanar MR images of the cervical spine were obtained without contra st. Axial T2, axial T2 MERGE sequence. Sagittal T1, T2, T2 fat saturation images also obtained. Com parison is made to prior examination from 11/05/2014. FINDINGS: The spinal cord signal intensity and intrinsic morphology is normal. Cervicomedullary junc tion is normal in appearance. There is moderate to severe disc disease at C3-4. Cervical fusion from C4 through C7. 2 mm anterolisthesis C2 on C3. Mild diffuse loss of the C3 vertebral body heights. The re are no suspicious marrow signal abnormalities. Paraspinal soft tissue is unremarkable. Level by level evaluation: Study is limited due to patient motion. C2-C3: Disc does not extend beyond the endplate margin. Uncovertebral joint arthropathy: Mild bilateral. Facet joint arthropathy: Severe left, moderate right. Neural foraminal stenosis: Mild left. Central canal stenosis: No stenosis. C3-4: There is a mild diffuse disc bulge. Uncovertebral joint arthropathy: Moderate to severe left, moderate right. Facet joint arthropathy: Moderate bilateral. Neural foraminal stenosis: Moderate to severe bilateral. Central canal stenosis: Mild to moderate . Central canal measures 6 mm in mid sagittal AP diameter . C4-5: This level is fused. Uncovertebral joint arthropathy: Moderate left, mild to moderate right. Facet joint arthropathy: Mild. Neural foraminal stenosis: No stenosis. Central canal stenosis: No stenosis. C5-C6: This level is fused. Uncovertebral joint arthropathy: Moderate bilateral. Facet joint arthropathy: Mild bilateral. Neural foraminal stenosis: No stenosis. Central canal stenosis: No stenosis. C6-C7: This level is fused. Uncovertebral joint arthropathy: Severe bilateral. Facet joint arthropathy: Mild bilateral. Neural foraminal stenosis: Moderate to severe bilateral. Central canal stenosis: No stenosis. C7-T1: Disc does not extend beyond the endplate margin. Uncovertebral joint arthropathy: Moderate bilateral. Facet joint arthropathy: Mild to moderate bilateral. Neural foraminal stenosis: Mild to moderate bilateral. Central canal stenosis: No stenosis. Compared to 2014, there has been interval progression in neural foraminal stenosis at C3-4 and to les ser extent C6-7. IMPRESSION: 1. Moderate to severe bilateral neural foraminal stenosis at C3-4 and C6-7. 2. Cervical fusion C4-7. 3. No acute findings. Reviewed, dictated and finalized at location A. ENGINE OPERATOR
--- NOTE | ~2020-06-24 | CT_ITS ---
EXAMINATION: CT cervical spine wo con DATE: 06/24/2020 12:33 INDICATION: Neck injury. TECHNIQUE: Computed tomography (CT) of the cervical spine was performed without intravenous contrast. Automated exposure control and iterative reconstruction technique were employed. The dose-length pro duct was 605.33 mGy-cm. COMPARISON: None FINDINGS: The visualized portions of the lung apices demonstrate emphysema. There is kyphosis of uppe r cervical spine. There is 3 degrees levocurvature of cervical spine. Vertebral body heights are norm al. There are changes of anterior fusion procedure from C4 to C7 with anterior plate and screws. Ther e is bridging interbody bone graft at C4-C5 and C5-C6, but not at C6-C7. There is severely decreased disc height at C3-C4. The osseous central spinal canal is developmentally small from C1 to C7. The fo llowing disc levels are specifically discussed: C2-C3: There is mild bilateral uncovertebral joint osteoarthritis. There is severe bilateral facet bita int osteoarthritis. There is mild bilateral neural foraminal stenosis. There is mild central canal st enosis. C3-C4: There is severe bilateral uncovertebral joint osteoarthritis. There is severe bilateral facet joint osteoarthritis. There is moderate bilateral neural foraminal stenosis. There is mild central ca nal stenosis. C4-C5: There is mild bilateral uncovertebral joint hypertrophy. There is no facet joint hypertrophy. There is mild bilateral neural foraminal stenosis. There is mild central canal stenosis. C5-C6: There is mild bilateral uncovertebral joint hypertrophy. There is mild bilateral facet joint h ypertrophy. There is no neural foraminal stenosis. There is mild central canal stenosis. C6-C7: There is severe bilateral uncovertebral joint osteoarthritis. There is moderate bilateral face t joint osteoarthritis. There is mild right and moderate left neural foraminal stenosis. There is mil d central canal stenosis. C7-T1: There is no uncovertebral joint osteoarthritis. There is moderate and severe left facet joint osteoarthritis. There is mild bilateral neural foraminal stenosis. There is mild central canal stenos is. IMPRESSION: 1. No fracture. 2. Severe cervical spondylosis. 3. Anterior fusion procedure from C4 to C7. Reviewed, dictated and finalized at location B. RONMENTAL PROGRAMS SPECIALIST
--- NOTE | ~2020-06-24 | XR_ITS ---
EXAMINATION: XR hip RT min 2V DATE: 06/25/2020 11:57 INDICATION: Right hip pain TECHNIQUE: Two views of right hip were obtained. COMPARISON: None. FINDINGS: Bone alignment is normal. There is no fracture. Mild osteoarthritis is noted. The soft tiss ues are unremarkable. IMPRESSION: 1. Mild osteoarthritis. Reviewed, dictated and finalized at location A. R MILLER IMPRESSION: 1. Mild osteoarthritis.
--- NOTE | ~2020-06-24 | CT_ITS ---
EXAMINATION: CT brain wo con DATE: 06/24/2020 12:33 INDICATION: Head injury. TECHNIQUE: Computed tomography (CT) of the head was performed without intravenous contrast. The mA wa s adjusted according to patient size. Iterative reconstruction technique was employed. The dose-lengt h product was 605.33 mGy-cm. COMPARISON: Head CT 03/24/2015 FINDINGS: There is chronic encephalomalacia in the inferior frontal lobes. There is no intracranial h emorrhage, acute infarction, or abnormal intracranial mass lesion. The ventricles are normal in size. There are likely changes of right ocular lens replacement surgery. 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 There are numerous old healed facial bone fractures with multiple plates with screws. There i s a small left mastoid effusion. There is severe post traumatic osteoarthritis of left compartment of the joint. IMPRESSION: 1. 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 Reviewed, dictated and finalized at location B. AL OPERATOR
--- NOTE | ~2020-06-24 | XR_ITS ---
EXAMINATION: XR chest 1V DATE: 06/24/2020 12:35 INDICATION: Back pain post fall TECHNIQUE: frontal view of the chest was obtained. COMPARISON: Chest radiograph and CT dated 05/05/20 FINDINGS: The lungs remain clear with no focal airspace opacities, pulmonary edema, pleural effusion or pneumot horax. The cardiomediastinal silhouette is normal. Plate and screw fixation for lower cervical anteri or spinal fusion. Moderate thoracic spondylosis. IMPRESSION: 1. No acute cardiopulmonary disease. Reviewed, dictated and finalized at location A. CAR REPAIRER
--- NOTE | 2020-06-24 12:12 | ECG_ITS ---
Measurements Intervals [place] Rate: 79 P: 42 TN: 156 QRS: 34 QRSD: 81 T: 75 QT: 371 QTc: 428 Interpretive Statements SINUS RHYTHM ATRIAL COUPLET, SUPRAVENTRICLAR BIGEMINY, NON-CONDUCTED PAC LOW QRS VOLTAGE IN PRECORDIAL LEADS BASELINE ARTIFACT- III, V2-V3 ABNORMAL ECG Electronically Signed On 06-24-2020 13:00:41 [employer] by Helder Dean D.O.
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
[2020-06-24 13:10] LABS: Hematocrit 31.7 % (37.0-47.0); Hemoglobin 9.8 g/dL (12.0-15.0); Mean Corpuscular HGB Conc 30.9 g/dl (32-36); Mean Corpuscular Hemoglobin 25.7 pg (26-34); Mean Corpuscular Volume 83.2 fl (80-100); Mean Platelet Volume 11.4 fl (7.4-10.4); Platelet Count Result 447 k/mm3 (150-375); Red Blood Count 3.81 M/mm3 (4.2-5.4); Red Cell Distribution Width 14.4 % (11.5-14.5); White Blood Count 31.5 K/mm3 (4.5-10.0)
[2020-06-24 13:13] LABS: Add Urine Microscopic? YES; Appearance Urine Clear (Clear); Bilirubin Urine Negative (Negative); Blood Urine Negative (Negative); Color Urine Amber (Yellow); Glucose Urine UA 3+ mg/dL (Negative); Hyaline Casts Urine 15-19 /lpf; Ketones Urine Negative (Negative); Leukocyte Esterase Ur Negative LEU/UL (Negative); Mucus Urine Rare /lpf; Nitrate Urine Negative (Negative); Protein Urine Negative (Negative); RBC Urine 0-2 /hpf (0-2); Specific Grav Ur 1.012 (1.001-1.035); Squamous Epithelial Cell Urine Occasional /hpf (Few); Urobilinogen Urine Negative mg/dL (<2.0); WBC Urine 0-3 /hpf
[2020-06-24] MEDS: SODIUM CHLORIDE 0.9% IV 1,000 ML 999 ML IV CONT ×2 (13:19→15:21)
[2020-06-24 13:20] LABS: Albumin Level 3.5 g/dL (3.5-5.1); Alkaline Phosphatase 144 U/L (38-126); Anion Gap 9 mmol/L (8-16); Aspartate Amino Transferase 29 U/L (14-36); Band Neutrophils Percent 12 % (0-6); Bilirubin,Total 0.7 mg/dL (0.2-1.3); Blood Urea Nitrogen 20 mg/dL (7-17); Calcium 9.4 mg/dL (8.4-10.2); Carbon Dioxide 25 mmol/L (22-30); Chloride 96 mmol/L (98-107); Creatine Kinase 48 U/L (30-135); Estimated CRCL calculation 15 ml/min; Estimated Glomerular Filt Rate 21; Glucose 437 mg/dL (65-105); Lymphocytes Absolute Manual 0.31 K/mm3 (1.1-4.5); Metamyelocytes Percent 1 %; Neutrophils Absolute Manual 30.87 K/mm3 (1.7-7.2); Neutrophils Percent Manual 86 % (46-73); Platelet Estimate Adequate (Adequate); Potassium 5.1 mmol/L (3.4-5.0); Sodium 130 mmol/L (137-145); Total Cells Counted 100
[2020-06-24 13:28] LABS: Alanine Aminotransferase 15 U/L (4-35)
[2020-06-24 13:30] LABS: Amphetamine Screen Urine Negative (Negative); Barbiturate Screen Urine Negative (Negative); Benzodiazepines Screen Urine Positive (Negative); Cannabinoid Screen Urine Positive (Negative); Cocaine Screen Urine Negative (Negative); Methadone Screen Urine Negative (Negative); Opiate Screen Urine Negative (Negative); Phencyclidine Screen Urine Negative (Negative)
[2020-06-24 14:34] LABS: Phenytoin Dilantin < 3 ug/mL (10-20)
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
[2020-06-24 15:22] LABS: Magnesium 2.2 mg/dL (1.6-2.3); Phosphorus 4.7 mg/dL (2.5-4.5)
[2020-06-24 15:23] LABS: Alveolar/Arterial O2 Gradient 41.9 mmHg; Base Excess ABG -2.5 mEq/l (+/-2.0); Fractional Inspired Oxygen 21 %; HCO3 ABG 21.3 mEq/l (22.0-26.0); Oxygen Content ABG 12.8 %vol (16.0-22.0); Oxygen Saturation ABG 94.3 % (95.0-100.0); Oxyhemoglobin 92.5 % THb (90.0-100.0); PO2 ABG 68.3 mmHg (80.0-100.0); PO2 FiO2 Ratio Arterial Blood 3.25 %; Total Hemoglobin 9.8 g/dL (12.0-18.0); pH ABG 7.428 (7.350-7.450)
[2020-06-24 15:24] LABS: Device ROOM AIR; Site Drawn LEFT BRACHIAL
[2020-06-24 15:30] LABS: Glucose Point of Care 364 (65-105)
[2020-06-24] MEDS: INSULIN HUMAN REGULAR (*BKC) 100 UNITS/ML 6 UNITS IV PUSH (15:51)
[2020-06-24 16:00] LABS: Erythrocyte Sedimentation Rate 67 mm/hr (0-20)
[2020-06-24 16:09] LABS: CRP 14.5 mg/dL (<1.0)
[2020-06-24] MEDS: GABAPENTIN 100 MG CAPSULE PO (17:55)
--- NOTE | 2020-06-24 18:49 | PC.NURSE ---
This patient, Haven Tubbs, was admitted to 2 Medical Room 254-01. Patient/family oriented to hospital policies and general routines including ID bracelet, bed and alarms, visiting hours, pain management, procedures, bathroom and other care routines, personal items, smoking policy, room service/diet, and visiting hours. Information on how to activate the Rapid Response Team has been discussed. Patient/Family are encouraged to report perceived risks to care and to ask questions if they do not understand what they are told or what they should do.
[2020-06-24] MEDS: SODIUM CHLORIDE 0.9% IV 1,000 ML 125 ML IV CONT (20:55)
[2020-06-24 21:22] LABS: Glucose Point of Care 205 (65-105)
[2020-06-24 22:47] LABS: Creatine Kinase 59 U/L (30-135)
[2020-06-24 23:00] LABS: Anion Gap 8 mmol/L (8-16); Blood Urea Nitrogen 19 mg/dL (7-17); Calcium 8.5 mg/dL (8.4-10.2); Carbon Dioxide 22 mmol/L (22-30); Chloride 103 mmol/L (98-107); Estimated CRCL calculation 20 ml/min; Estimated Glomerular Filt Rate 27; Glucose 197 mg/dL (65-105); Hemoglobin A1C 9.6 % (<5.7); Potassium 4.2 mmol/L (3.4-5.0); Sodium 133 mmol/L (137-145)
[2020-06-24 23:50] LABS: Thyroid Stimulating Hormone Reflex 0.759 uIU/mL (0.465-4.68)
[2020-06-25 04:00] VITALS: BP 138/51; PULSE 93; RESP 20; TEMP 36.6; O2SAT 93
[2020-06-25 04:13] VITALS: BP 109/38; BP 109/60
[2020-06-25 06:14] LABS: Basophils Percent Auto 0.2 % (0.2-1.2); Eosinophils Absolute Auto 0.1 K/mm3 (0-0.3); Eosinophils Percent Auto 0.7 % (0-4.4); Hematocrit 28.5 % (37.0-47.0); Hemoglobin 9.1 g/dL (12.0-15.0); Immature Granulocyte Absolute 0.08 K/mm3 (0.00-0.031); Immature Granulocyte Percent A 0.4 % (0-0.5); Lymphocytes Absolute Auto 1.72 K/mm3 (0.9-3.2); Lymphocytes Percent Auto 9.1 % (18.3-44.2); Mean Corpuscular HGB Conc 31.9 g/dl (32-36); Mean Corpuscular Hemoglobin 26.3 pg (26-34); Mean Corpuscular Volume 82.4 fl (80-100); Mean Platelet Volume 11.1 fl (7.4-10.4); Monocytes Absolute Auto 0.5 K/mm3 (0.1-0.6); Monocytes Percent Auto 2.8 % (2.6-8.5); Neutrophils Absolute Auto 16.5 K/mm3 (1.3-6.7); Neutrophils Percent Auto 86.8 % (45.5-73.1); Platelet Count Result 406 k/mm3 (150-375); Red Blood Count 3.46 M/mm3 (4.2-5.4); Red Cell Distribution Width 14.5 % (11.5-14.5)
[2020-06-25] MEDS: SODIUM CHLORIDE 0.9% IV 1,000 ML 75 ML IV CONT ×2 (06:21→21:22)
[2020-06-25] MEDS: ALPRAZolam (*CRX) 0.25 MG TABLET PO ×2 (06:25→21:19)
[2020-06-25 06:37] LABS: Anion Gap 7 mmol/L (8-16); Blood Urea Nitrogen 18 mg/dL (7-17); Calcium 8.6 mg/dL (8.4-10.2); Carbon Dioxide 24 mmol/L (22-30); Chloride 104 mmol/L (98-107); Estimated CRCL calculation 21 ml/min; Estimated Glomerular Filt Rate 29; Glucose 246 mg/dL (65-105); Potassium 4.3 mmol/L (3.4-5.0); Sodium 135 mmol/L (137-145)
[2020-06-25 08:13] LABS: Glucose Point of Care 223 (65-105)
[2020-06-25] MEDS: ATORVASTATIN 10 MG TABLET PO (08:45)
[2020-06-25] MEDS: GLIMEPIRIDE 2 MG TABLET 4 MG PO ×2 (08:45→16:34)
[2020-06-25] MEDS: APIXABAN 5 MG TABLET PO ×2 (08:45→16:34)
[2020-06-25] MEDS: PANTOPRAZOLE 40 MG TABLET PO (08:45)
[2020-06-25] MEDS: VITAMIN B COMPLEX/VIT C CAPSULE 1 EACH PO (08:45)
[2020-06-25] MEDS: MULTIVITAMINS THERAPEUTIC TAB (*BKC) 1 TABLET PO (08:45)
[2020-06-25] MEDS: INSULIN ASPART (*BKC) 100 UNITS/ML SUB-Q ×2 (08:46→12:13)
[2020-06-25] MEDS: GABAPENTIN 100 MG CAPSULE PO ×3 (09:12→16:34)
[2020-06-25 12:05] LABS: Glucose Point of Care 241 (65-105)
--- NOTE | 2020-06-25 13:18 | PCPTNOTE ---
patient declined...said that she had just received pain medicine and wasn't hurting, but if she moved, she would hurt again, so she was not going to move...will try later or tomorrow
[2020-06-25 14:00] VITALS: BP 137/59; PULSE 85; RESP 18; TEMP 36.7; O2SAT 95
[2020-06-25 14:03] VITALS: BP 115/60; PULSE 81
[2020-06-25 14:06] VITALS: BP 111/40; PULSE 60
--- NOTE | 2020-06-25 14:13 | PM.IMPN ---
Progress Note: A&P Assessment and Plan (1) Acute on chronic kidney failure: Code(s): N17.9 - Acute kidney failure, unspecified; N18.9 - Chronic kidney disease, unspecified Status: Acute Assessment and Plan: Most likely secondary to dehydration will gently hydrate the patient and monitor kidney function (2) Chronic anemia: Code(s): D64.9 - Anemia, unspecified Status: Chronic Assessment and Plan: Patient clinically stable will do the iron profile and further recommendation to follow (3) Leukocytosis: Qualifiers: Leukocytosis type: unspecified Qualified Code(s): D72.829 - Elevated white blood cell count, unspecified Code(s): D72.829 - Elevated white blood cell count, unspecified Status: Acute Assessment and Plan: There are no signs or symptoms of infection most likely secondary to cannabis gummies patient using control her pain, it has been stopped (4) Electrolyte abnormality: Code(s): E87.8 - Other disorders of electrolyte and fluid balance, not elsewhere classified Status: Acute Assessment and Plan: Will monitor and supplement (5) Type 2 diabetes mellitus with hyperglycemia: Code(s): E11.65 - Type 2 diabetes mellitus with hyperglycemia Status: Acute Assessment and Plan: Will continue home regiment and monitor (6) Neck pain: Code(s): M54.2 - Cervicalgia Status: Acute Assessment and Plan: Patient was started on gabapentin, will have a PT OT evaluate the patient (7) Fall from ground level: Code(s): W18.30XA - Fall on same level, unspecified, initial encounter Status: Acute Assessment and Plan: 06/25/20 14:13 patient is 79-year-old female with history of pulmonary emboli for which patient is taking Eliquis and history of chronic neck and back pain patient had been seen by pain management and was receiving hydrocortisone on injection for her pain however since patient is on Eliquis and unable to get her pain shots and patient pain is not controlled with oral pain medication so patient has start to take medical marijuana gummies however patient states when she takes those gummies significant nausea and dizzy and falls, also upon arrival patient's white counts were elevated to 31,500 and this morning that down to 19,000, patient urine and chest x-ray a normal and patient was not placed on an antibiotic suggesting most likely patient white counts elevated due to cannabis gummies, patient was started on gabapentin 100 mg t.i.d. will continue to monitor, this morning patient clinically stable will have a PT OT evaluate the patient, patient will benefit from acute rehab Additional Plan The patient is being admitted to the hospitalist service after she suffered 2 falls today, not long after standing. She was feeling lightheaded and dizzy prior to the fall thus will monitor orthostatic vital signs and initiate fall precautions. PT/OT consulted. Regarding her worsening renal function, it looks like she is dry on exam and labs thus will continue with cautious IV fluid rehydration with close monitoring of volume status and renal function. Avoid nephrotoxic agents. I suspect her mild electrolyte abnormalities (mild hyponatremia and mild hyperkalemia) will improve with hydration. Her white count is markedly elevated at 31,000 with a left shift, however looking through her previous visits she has had an elevated white blood cell count for quite some time. Given unprovoked pulmonary embolism a couple of months ago and leukocytosis, I wonder if she may have underlying malignancy or dyscrasia and it may be prudent to have hematology see her. Urinalysis and chest x-ray are unremarkable and she gives no history to suggest an obvious source for underlying infection. Obtain blood cultures to rule out bacteremia which seems unlikely. However, given worsening neck pain and upper extremity weakness I think it would be prudent
[2020-06-25 16:37] LABS: Glucose Point of Care 152 (65-105)
--- NOTE | 2020-06-25 16:55 | PC.NURSE ---
Patient has had [address] Britton and reported diarrhea. Orders received for Imodium.
[2020-06-25] MEDS: LOPERAMIDE HCL 2 MG CAPSULE PO (17:50)
[2020-06-25 20:00] VITALS: BP 133/57; PULSE 115; RESP 20; TEMP 37.2; O2SAT 96
[2020-06-25 21:32] LABS: Glucose Point of Care 260 (65-105)
[2020-06-26] MEDS: ALPRAZolam (*CRX) 0.25 MG TABLET PO (03:49)
[2020-06-26 04:00] VITALS: BP 136/93; PULSE 60; RESP 20; TEMP 36.4; O2SAT 95
[2020-06-26 05:00] VITALS: BP 142/63; PULSE 80; RESP 18; TEMP 36.3; O2SAT 96
[2020-06-26 05:01] VITALS: BP 100/30; BP 114/65
[2020-06-26 05:54] LABS: Hematocrit 28.5 % (37.0-47.0); Mean Corpuscular HGB Conc 31.6 g/dl (32-36); Mean Corpuscular Hemoglobin 25.6 pg (26-34); Mean Platelet Volume 10.9 fl (7.4-10.4); Platelet Count Result 398 k/mm3 (150-375); Red Blood Count 3.52 M/mm3 (4.2-5.4); Red Cell Distribution Width 14.3 % (11.5-14.5); White Blood Count 13.7 K/mm3 (4.5-10.0)
[2020-06-26 06:28] LABS: Anion Gap 4 mmol/L (8-16); Blood Urea Nitrogen 11 mg/dL (7-17); Calcium 8.6 mg/dL (8.4-10.2); Carbon Dioxide 25 mmol/L (22-30); Chloride 106 mmol/L (98-107); Creatine Kinase 40 U/L (30-135); Estimated CRCL calculation 29 ml/min; Estimated Glomerular Filt Rate 44; Glucose 160 mg/dL (65-105); Potassium 3.9 mmol/L (3.4-5.0); Sodium 135 mmol/L (137-145)
[2020-06-26 07:49] LABS: Glucose Point of Care 180 (65-105)
[2020-06-26] MEDS: MULTIVITAMINS THERAPEUTIC TAB (*BKC) 1 TABLET PO (08:06)
[2020-06-26] MEDS: APIXABAN 5 MG TABLET PO (08:06)
[2020-06-26] MEDS: ATORVASTATIN 10 MG TABLET PO (08:06)
[2020-06-26] MEDS: GABAPENTIN 100 MG CAPSULE PO ×2 (08:06→12:05)
[2020-06-26] MEDS: GLIMEPIRIDE 2 MG TABLET 4 MG PO (08:06)
[2020-06-26] MEDS: VITAMIN B COMPLEX/VIT C CAPSULE 1 EACH PO (08:07)
[2020-06-26] MEDS: PANTOPRAZOLE 40 MG TABLET PO (08:07)
--- NOTE | 2020-06-26 10:06 | PM.DS ---
DS: Admitting Diagnosis Admitting Diagnosis Admitting Diagnosis: Chief Complaint: Fall x2. DS: Discharge Diagnosis Discharge Diagnosis (1) Acute on chronic kidney failure: Code(s): N17.9 - Acute kidney failure, unspecified; N18.9 - Chronic kidney disease, unspecified Status: Acute Assessment and Plan: Most likely secondary to dehydration will gently hydrate the patient and monitor kidney function (2) Chronic anemia: Code(s): D64.9 - Anemia, unspecified Status: Chronic Assessment and Plan: Patient clinically stable will do the iron profile and further recommendation to follow (3) Leukocytosis: Qualifiers: Leukocytosis type: unspecified Qualified Code(s): D72.829 - Elevated white blood cell count, unspecified Code(s): D72.829 - Elevated white blood cell count, unspecified Status: Acute Assessment and Plan: There are no signs or symptoms of infection most likely secondary to cannabis gummies patient using control her pain, it has been stopped (4) Electrolyte abnormality: Code(s): E87.8 - Other disorders of electrolyte and fluid balance, not elsewhere classified Status: Acute Assessment and Plan: Will monitor and supplement (5) Type 2 diabetes mellitus with hyperglycemia: Code(s): E11.65 - Type 2 diabetes mellitus with hyperglycemia Status: Acute Assessment and Plan: Will continue home regiment and monitor (6) Neck pain: Code(s): M54.2 - Cervicalgia Status: Acute Assessment and Plan: Patient was started on gabapentin, will have a PT OT evaluate the patient (7) Fall from ground level: Code(s): W18.30XA - Fall on same level, unspecified, initial encounter Status: Acute Assessment and Plan: 06/25/20 14:13 patient is 79-year-old female with history of pulmonary emboli for which patient is taking Eliquis and history of chronic neck and back pain patient had been seen by pain management and was receiving hydrocortisone on injection for her pain however since patient is on Eliquis and unable to get her pain shots and patient pain is not controlled with oral pain medication so patient has start to take medical marijuana gummies however patient states when she takes those gummies significant nausea and dizzy and falls, also upon arrival patient's white counts were elevated to 31,500 and this morning that down to 19,000, patient urine and chest x-ray a normal and patient was not placed on an antibiotic suggesting most likely patient white counts elevated due to cannabis gummies, patient was started on gabapentin 100 mg t.i.d. will continue to monitor, this morning patient clinically stable will have a PT OT evaluate the patient, patient will benefit from acute rehab DS: Summary Hospital Course Reason for hospitalization: Chief Complaint: Fall x2. Narrative: This is a very pleasant 79-year-old female with history of pulmonary embolism on apixaban, type 2 diabetes mellitus, chronic kidney disease, and chronic neck and back pain who presented to the emergency department earlier today via EMS from home for evaluation after she had 2 falls today. She is known to the hospitalist service as she was admitted to the hospital twice in May 2020, initially with bilateral pulmonary embolism thought to be related to a more sedentary lifestyle due to her chronic pain, and again shortly thereafter with bright red blood per rectum, which was in small amounts and thought to be related to hemorrhoids. Unfortunately her chronic pain has gotten worse in the last month or so, as she is not able to received cortisone injections any longer due to being on anticoagulation. She more recently began using medical marijuana gummies in addition to acetaminophen and heating pad, although she does not think any of those therapies provide her with much benefit. She has had progression of her pain in her neck and right shoulder, which she
--- NOTE | 2020-06-26 11:54 | PCPTNOTE ---
Patient is in the process of d/c'g from the hospital...she informed Dr Britton that she did not want therapy....I asked her as well, and patient declined.
[2020-06-28 15:12] LABS: Phenytoin Dilantin Free <0.5 mg/L (1.0-2.0)
== END 2020-06-26 12:30 | disposition home or self-care (01) ==
LOC: ANHED 12:09 → ANH2MED 18:00
PROVIDERS: Physician Assistant; Admitting Provider Family Medicine; Emergency Provider Emergency Medicine; PCP Internal Medicine; Visit Provider Family Medicine
DX: R42 Dizziness and giddiness (principal); D72.829 Elevated white blood cell count, unspecified; W19.XXXA Unspecified fall, initial encounter; F12.90 Cannabis use, unspecified, uncomplicated; N17.9 Acute kidney failure, unspecified; I12.9 Hypertensive chronic kidney disease with stage 1 through stage 4 chronic kidney disease, or unspecified chronic kidney disease; N18.30 Chronic kidney disease, stage 3 unspecified; D64.9 Anemia, unspecified; E87.8 Other disorders of electrolyte and fluid balance, not elsewhere classified; M47.812 Spondylosis without myelopathy or radiculopathy, cervical region; M48.02 Spinal stenosis, cervical region; E11.65 Type 2 diabetes mellitus with hyperglycemia; E11.22 Type 2 diabetes mellitus with diabetic chronic kidney disease; G89.29 Other chronic pain; Z79.4 Long term (current) use of insulin; Z86.711 Personal history of pulmonary embolism; Z79.01 Long term (current) use of anticoagulants; Z98.1 Arthrodesis status; Z87.891 Personal history of nicotine dependence
CPT/HCPCS: 36415; 36600; 51701; 70450; 71045; 72125; 72141; 73502; 80048; 80053; 80185; 80186; 80307; 81001; 82010; 82533; 82550; 82805; 82948; 83036; 83735; 84100; 84443; 85025; 85027; 85652; 86140; 87040; 93005; 96360; 96361; 96374; 97165; 99285; A9270; G0378; J1815; J7030